=== PATIENT | female | born 1970 | race Caucasian/White ===

== ENCOUNTER 2025-06-07 08:30 | Outpatient (CLI) | payer BC | END 2025-06-07 08:31 | disposition home or self-care (01) | LOC: CSHSLEEP 08:30 | PROVIDERS: ATTEND Family Medicine | DX: G47.10 Hypersomnia, unspecified (principal); G47.9 Sleep disorder, unspecified; G47.61 Periodic limb movement disorder; G25.81 Restless legs syndrome; R53.83 Other fatigue; R51.9 Headache, unspecified; F41.9 Anxiety disorder, unspecified; R06.83 Snoring; G47.00 Insomnia, unspecified; G47.33 Obstructive sleep apnea (adult) (pediatric) | CPT/HCPCS: 95800 ==